=== PATIENT | female | born 2000 | race Two or more races ===

== ENCOUNTER 2022-10-13 07:48 | Emergency (ER) | payer BC ==
[~2022-10-13] VITALS: Ht 175.3 cm; Wt 90.7 kg
[2022-10-13 07:53] VITALS: BP 132/89
--- NOTE | 2022-10-13 08:22 | NUR ---
Patient discharged to home in stable condition and ambulating. Written and verbal after care instructions given. Patient verbalizes understanding of instruction.
== END 2022-10-13 08:23 | disposition home or self-care (01) ==
LOC: ER 07:48
DX: L72.11 Pilar cyst (principal)

== ENCOUNTER 2022-11-01 10:05 | Emergency (ER) | payer BC ==
[~2022-11-01] VITALS: Ht 177.8 cm; Wt 86.2 kg
[2022-11-01 10:11] VITALS: BP 140/99
--- NOTE | 2022-11-01 10:15 | NUR ---
R ANKLE PAIN S/P FALL AFTER MISSING A STEP GOING DOWN STAIRS 1 HOUR AGO
--- NOTE | 2022-11-01 10:30 | NUR ---
ORTHO DANG / CAM WALKER PROVIDED
--- NOTE | 2022-11-01 10:48 | NUR ---
Patient discharged to home in stable condition. Written and verbal after care instructions given. Patient verbalizes understanding of instruction.
== END 2022-11-01 10:49 | disposition home or self-care (01) ==
LOC: ER 10:09
DX: S93.401A Sprain of unspecified ligament of right ankle, initial encounter (principal); W10.9XXA Fall (on) (from) unspecified stairs and steps, initial encounter; Y93.89 Activity, other specified; Y92.89 Other specified places as the place of occurrence of the external cause; Y99.8 Other external cause status
CPT/HCPCS: 73610-TC